=== PATIENT | male | born 1955 | race Caucasian/White ===

== ENCOUNTER 2024-08-08 18:49 | Emergency (ER) | payer OTHER, SELFPAY ==
[2024-08-08 18:54] VITALS: BP 113/71; PULSE 96; RESP 20; TEMP 36.6; O2SAT 96
[2024-08-08] MEDS: HYDROmorphone 2 MG/ML SYR 0.5 MG IVP (21:12)
[2024-08-08] MEDS: Dexamethasone 4 MG/ML VIAL IVP (21:12)
[2024-08-08 21:21] LABS: Abs Immature Grans 0.02 10^3/uL (0.0-0.06); Absolute Basophil Count 0.05 10^3/uL (0.0-0.2); Absolute Eosinophil Count 0.25 10^3/uL (0.0-0.7); Absolute Lymphocyte Count 1.65 10^3/uL (1.2-3.4); Absolute Monocyte Count 0.73 10^3/uL (0.1-0.8); Absolute Neutrophil Count 5.05 10^3/uL (1.2-6.7); Basophils % 0.6 %; Eosinophils % 3.2 %; HCT 39.3 % (40.0-50.0); HGB 13.4 g/dL (13.5-17.5); Immature Grans % 0.3 %; Lymphocytes % 21.3 %; MCH 29.5 pg (27.0-33.0); MCHC 34.1 % (32.0-36.0); MCV 86 fL (80-95); MPV 9.7 fL (8.0-11.0); Monocytes % 9.4 %; Neutrophils % 65.2 %; Platelet Count 423 10^3/uL (130-400); RBC 4.55 10^6/uL (4.36-5.78); RDW 13.4 % (11.8-14.1); RDW-SD 42.1 fL; WBC 7.75 10^3/uL (4.4-10.8)
[2024-08-08 21:36] LABS: ALT 19 U/L (16-63); AST 19 U/L (15-37); Albumin 3.2 g/dL (3.4-5.0); Alkaline Phosphatase 109 U/L (46-116); Anion Gap 6.5 mmol/L (3-11); BUN 19 mg/dL (7-18); Bilirubin, Total 0.5 mg/dL (0.2-1.0); CO2 29.5 mmol/L (21.0-32.0); CREATININE 0.9 mg/dL (0.70-1.30); Calcium 9.4 mg/dL (8.5-10.1); Chloride 98 mmol/L (98-107); Estimated GFR 93.03 (mL/min/1.73m2); Glucose 134 mg/dL (74-106); Potassium 3.5 mmol/L (3.5-5.1); Sodium 134 mmol/L (136-145); Total Protein 7.9 g/dL (6.4-8.2)
[2024-08-08] MEDS: HYDROmorphone 2 MG/ML SYR 1 MG IVP (22:23)
[2024-08-08] MEDS: Normal Saline - Diluent 50 ML VIAL IJ (22:55)
--- NOTE | 2024-08-08 22:55 | DI.CT_ITS ---
Exam(s) CT CHEST PE CTA EXAM: CT CHEST PE CTA CLINICAL HISTORY: hx of melanma/ mets to axillary, left, numb arm,. TECHNIQUE: Imaging Protocol: Axial CT angiography was performed with multi-slice acquisition and mu lti-planar reconstructions as well as axial, coronal and sagittal MIP reconstructions. Computer aided detection (CAD) was utilized. CONTRAST MATERIAL: Intravenous: Omnipaque 350 Contrast volume:90 ml COMPARISON: No exams were available for comparison FINDINGS: There is streak artifact secondary to patient arm positioning. Pulmonary Arteries: No evidence of filling defect to suggest pulmonary emboli. Mediastinum and Isabell: Enlarged left paratracheal lymph node 1.9 cm. Pulmonary parenchyma: No consolidation or dominant measurable mass. Pleura: No effusion or pneumothorax. Scattered calcified pleural plaques. Heart: The heart is mildly dilated. Mild coronary artery calcifications are seen. Aorta: Thoracic aorta non-dilated. No dissection. Upper abdomen: No acute findings. Bones: Prominent endplate osteophytes consistent with DISH. No fracture or visible rib destruction. Tubes, Catheters, and Lines: None Soft tissues: There is a large homogeneous solid mass noted in the right axilla measuring 6.2 x 10.4 x 11.8 cm the lies beneath the pectoralis minor muscle. It abuts the ribs intracostal muscles. Ther e is no definite invasion. There is an additional node located directly superior to the larger mass measuring 3 cm. The right subclavian and axillary arteries are patent. There is some attenuation of the axillary artery by the large axillary mass which is situated directly inferiorly and anteriorly.. The venous structures are not yet opacified and cannot be evaluated. IMPRESSION: No evidence of pulmonary embolism. Large left axillary mass with some compression of the right subclavian artery. No evidence of rib de struction. Enlarged left paratracheal lymph node. No visible pulmonary metastases. The preliminary [facility] report was reviewed. RADIATION DOSE DELIVERED: Total DLP DATA REPOSITORY: All CT scans at this facility are submitted to the National Radiology Data Registry (NRDR) Dose Index Registry (DIR) with the [employer] (ACR). RADIATION OPTIMIZATION: All CT scans at this facility use at least one of these dose optimization te chniques: automated exposure control; mA and/or kV adjustment per patient size (includes targeted exa ms where dose is matched to clinical indication); or iterative reconstruction.
[2024-08-08] MEDS: Omnipaque 350 MG/ML 100 ML BTL 90 ML IJ (22:56)
[2024-08-08] MEDS: MORPHine IR 15 MG TAB PO (23:10)
[2024-08-08] MEDS: Gabapentin 300 MG CAP PO (23:11)
--- NOTE | 2024-08-08 23:37 | DI.[facility]_ITS ---
PROCEDURE INFORMATION: Exam: CTA Chest With Contrast Exam date and time: 08/08/2024 10:43 PM Age: 69 years old Clinical indication: Other: HX of melanoma/mets to axillary, left, numb arm TECHNIQUE: Imaging protocol: Computed tomographic angiography of the chest with contrast. Exam focused on the arteries. 3D rendering (Not supervised by radiologist): MIP and/or 3D reconstructed images were created by the technologist. Contrast material: OMNIPAQUE 350; Contrast volume: 90 ml; Contrast route: INTRAVENOUS (IV); COMPARISON: No relevant prior studies available. FINDINGS: Pulmonary arteries: No pulmonary embolism. Aorta: Contrast in the aorta is low, limiting evaluation for dissection. No aneurysm. Other arteries: There is no occlusion of the right subclavian or axillary arteries. The subclavian and axillary arteries are surrounded by the chest wall mass, over 270 degrees. See industrial relations representative sagittal image 21 series 6. Lungs: No consolidation. No rounded ground-glass opacity. No significant interstitial lung disease. No suspicious pulmonary nodules. Pleural spaces: Unremarkable. No pneumothorax. No pleural effusion. Heart: No cardiomegaly. Trace pericardial effusion. No significant coronary artery calcification. Lymph nodes: A mildly enlarged left paratracheal lymph node measures 1.9 x 1.4 cm, axial image 21 series 4. Bones/joints: No compression fractures. Mild kyphosis. Findings of diffuse idiopathic skeletal hyperostosis (DISH) are noted. Soft tissues: A large mass is present in the right chest wall, involving or displacing the right pectoralis minor muscle. The mass measures 6.2 x 10.4 x 11.8 cm. See axial image 20 series 4 and sagittal image 21 series 6. The mass is homogeneous in attenuation, Hounsfield units 21. The overlying pectoralis major muscle appears normal, with a fat plane between the muscle and the mass. The mass is closely adjacent to the intercostal muscles, however no specific intercostal or rib invasion is observed. IMPRESSION: 1. No pulmonary embolism. 2. No significant pneumonia. 3. Large right chest wall/axillary mass. Dictated and Authenticated by: Tunde Moreno MD. Orderin Lashawn Higgins MD
--- NOTE | 2024-08-08 23:59 | W.ED.GENAD ---
Discharge Plan Disposition Patient Disposition: Home Condition: Stable Discharge Details Clinical Impression: Metastatic melanoma, Axillary mass Primary Care Provider: [facility] ED Provider: Gisela Hardin Home Meds and New Rx's Prescriptions: New morphine 15 mg tablet 15 mg PO BID Qty: 12 0RF gabapentin [Neurontin] 300 mg capsule 300 mg PO TID Qty: 30 0RF Continued oxycodone 10 mg tablet 10 mg PO Q12H Discharge Instructions Instructions: Melanoma Skin Cancer (DC) Additional Instructions: Take the oxycodone 10 twice daily, for pain uncontrolled with OxyContin you may take morphine IR for breakthrough pain You may also take the Neurontin 3 times daily, try not to take any of these medications at the same time Make sure you are having prune juice or a laxative daily Please follow-up with your oncologist and placing a palliative care referral for better pain control Please be reevaluated should you have dramatic change or worsening pain Referrals: [facility] [Primary Care Provider] - 3 days HPI General Date/Time Provider Initiated Documentation: 08/08/24 19:00. HPI Narrative: 69-year-old male with melanoma metastasis to right axillary region, presenting with intractable pain. Persistent pain despite OxyContin prescribed by oncologist two days ago. Neurontin previously tried without relief. Seeking effective pain management. [facility] Alert and oriented but acutely uncomfortable. will monitor due to extensive medication regimen. Swelling in right axillary region. Negative Adson's test, good radial pulse, intact sensation to fingers. Follows with dermatology oncology, had immunotherapy on the 6th. Related Data Home Medications ?Medication ?Instructions ?Recorded ?Confirmed gabapentin 300 mg capsule 300 mg PO TID #30 caps 08/08/24 (Neurontin) morphine 15 mg immediate release 15 mg PO BID #12 tabs 08/08/24 tablet oxycodone 10 mg tablet 10 mg PO Q12H 08/08/24 08/08/24 Previous Rx's ?Medication ?Instructions ?Recorded gabapentin 300 mg capsule 300 mg PO TID #30 caps 08/08/24 (Neurontin) morphine 15 mg immediate release 15 mg PO BID #12 tabs 08/08/24 tablet Allergies Allergy/AdvReac Type Severity Reaction Status Date / Time No Known Allergies Allergy Unverified 08/08/24 19:00 General Stated Complaint: Orthopedic RED: 3 Exam Narrative Exam Narrative: General Appearance: Normal. Vital signs: Within normal limits. HEENT: Within normal limits. Respiratory: Lungs clear to auscultation. No respiratory distress. Cardiovascular: Distal pulses intact. Skin: Warm and dry, no rash. Neurological: Normal. Course Vital Signs Vital signs: Vital Signs Temperature 36.6 C 08/08/24 18:54 Pulse 96 H 08/08/24 18:54 Respiratory Rate 20 08/08/24 18:54 Blood Pressure 113/71 08/08/24 18:54 Pulse Oximetry 96 08/08/24 18:54 Temperature 36.6 C 08/08/24 18:54 Pulse 96 H 08/08/24 18:54 Respiratory Rate 20 08/08/24 18:54 Blood Pressure 113/71 08/08/24 18:54 Blood Pressure Position Sitting 08/08/24 18:54 Pulse Oximetry 96 08/08/24 18:54 Oxygen Delivery Method Room Air 08/08/24 18:54 Oxygen Flow Rate 0 08/08/24 18:54 Pain Level 4 08/08/24 23:10 Lab/Test Results Lab/Test Results: Laboratory Tests Range/Units 08/08/24 21:14 WBC (4.4-10.8) 10^3/uL 7.75 RBC (4.36-5.78) 10^6/uL 4.55 Hgb (13.5-17.5) g/dL 13.4 L Hct (40.0-50.0) % 39.3 L MCV (80-95) fL 86 MCH (27.0-33.0) pg 29.5 MCHC (32.0-36.0) % 34.1 RDW (11.8-14.1) % 13.4 Plt Count (130-400) 10^3/uL 423 H MPV (8.0-11.0) fL 9.7 Immature Gran % % 0.3 Neutrophils % % 65.2 Lymphocytes % % 21.3 Monocytes % % 9.4 Eosinophils % % 3.2 Basophils % % 0.6 Nucleated RBC % (0.0-0.3) % 0.0 Absolute Neutrophils (1.2-6.7) 10^3/uL 5.05 Absolute Lymphocytes (1.2-3.4) 10^3/uL 1.65 Absolute Monocytes (0.1-0.8) 10^3/uL 0.73 Absolute Eosinophils (0.0-0.7) 10^3/uL 0.25 Absolute Basophils (0.0-0.2) 10^3/uL 0.05 Sodium (136-145) mmol/L 134 L Potassium (3.5-5.1) mmol/L 3.5 Chloride (98-107) mmol/L 98 Carbon Dioxide (21.0-32.0) mmol/L 29.5 Anion Gap (3-11) mmol/L 6.5 BUN (7-18) mg/dL 19 H Creatinine (0.70-1.30) mg/dL 0.9 Est GFR (CKD-EPI 2020) (mL/min/1.73m2) 93.03 Glucose (74-106) mg/dL 134 H Calcium (8.5-10.1) mg/dL 9.4 Total Bilirubin (0.2-1.0) mg/dL 0.5 AST (15-37) U/L 19 ALT (16-63) U/L 19 Alkaline Phosphatase (46-116) U/L 109 Total Protein (6.4-8.2) g/dL 7.9 Albumin (3.4-5.0) g/dL 3.2 L Medical Decision Making CBC and chemistry reassuring. CT chest shows no significant acute change compared to previous CT. Initial Assessment: 69-year-old male with recent diagnosis of melanoma with metastasis to the right axillary region, presenting with intractable pain. OxyContin prescribed 2 days ago, not controlling pain. Neurontin tried without relief. Immunotherapy on the 6th. Swelling in right axillary region. Negative Adson's, good radial pulse. Alert and oriented but acutely uncomfortable. Intact sensation to fingers. ED Course: - CT chest ordered for comparison, no significant acute change compared to previous CT. - CBC and chemistry reassuring. - PDMP reviewed, only on OxyContin. - Added Morphine IR 15 mg for breakthrough pain. - Prescribed Neurontin. - Palliative care referral placed. - Referral back to dermatology oncology for patient. - Return precautions reviewed, patient expressed understanding. Final Assessment: Patient with intractable pain due to melanoma metastasis to the right axillary region. Pain not controlled by OxyContin and Neurontin. CT chest shows no significant acute change. CBC and chemistry are reassuring. Morphine IR added for breakthrough pain. Palliative care and dermatology oncology referrals placed. Clinical Impression: - Intractable pain - Melanoma with metastasis to right axillary region Disposition: - Discharge - Follow-Up: Palliative care referral and dermatology oncology referral MDM Components Evaluation: - Number of Differential Diagnoses or Management Options: Intractable pain, melanoma with metastasis to right axillary region - Amount and Complexity of Data Reviewed: CT chest, CBC, chemistry, PDMP - Risk of Complication and Morbidity or Mortality: Low clinical suspicion for PE or more ominous pathology based on clinical assessment Quality:SDOH Health Related Social Needs: No Data to Display PFSH All Active Problems (Updated 08/08/24 @ 23:49 by LENORA Tamez) Axillary mass (Acute) Metastatic melanoma (Acute) Social History Smoking risk assessment performed?: No
[2024-08-09] MEDS: MORPHine IR 15 MG TAB, 4 TABS/BTL PO (00:01)
[2024-08-09 00:13] VITALS: BP 113/71; PULSE 62; RESP 20; O2SAT 96
--- NOTE | 2024-08-09 08:05 | NUR.NOTE ---
Access chart to get information for referral. Nursing Note:
== END 2024-08-09 00:13 | disposition home or self-care (01) ==
PROVIDERS: Emergency Provider Physician Assistant
DX: C43.9 Malignant melanoma of skin, unspecified (principal); R22.31 Localized swelling, mass and lump, right upper limb; M79.621 Pain in right upper arm
CPT/HCPCS: 99284; 99285; 96374; 96375; 96376; 36415; 71275; 80053; 85025; J1100; J1171; J3490

== ENCOUNTER 2024-10-08 09:13 | Inpatient (IN) | payer OTHER, SELFPAY ==
[2024-10-08] VITALS (29 sets, daily range): BP systolic 95–122; BP diastolic 56–75; PULSE 102–116; RESP 11–27; TEMP 34.8–36.8; O2SAT 93–98
--- NOTE | 2024-10-08 09:14 | W.ED.GENAD ---
Discharge Plan Discharge Details Chief Complaint: GenMedical Clinical Impression: Acute deep vein thrombosis (DVT) of right upper extremity Admit Date/Time: 10/08/24 13:03 Admit Provider: Alberto Malone Attending Provider: Alberto Malone Primary Care Provider: Unknown,Unknown ED Provider: Abdoulaye Em General Date/Time Provider Initiated Documentation: 10/08/24 09:14. HPI Narrative: MDM This is an unwell appearing tachycardic and hypotensive 69-year-old male with significant right upper chest mass and history of malignant melanoma with decreased motor function in right hand concerning for the possibility of upper extremity DVT for which patient will undergo ultrasound. Given tachycardia and hypotension we will also obtain CT angiogram of the patient's chest to assess for PE. He does have mild lower extremity edema but appears to have a preserved ejection fraction. Given concern for sepsis we will limit IV fluids to 1 L. No pain or proportion to suggest necrotizing soft tissue infection. Right hand warm well-perfused so no concern for critical limb ischemia. I covered patient with piperacillin and vancomycin following blood cultures and lactate assessment. Patient confirms full code. Equal breath sounds without pneumothorax. Soft nontender abdomen so did not obtain intra-abdominal imaging. No history of thoracic rib to suggest thoracic outlet syndrome. Patient reports chronic decreased mobility in right hand so not suspicious for CVA so do not feel the patient requires CT scan of his head. Will treat his pain with hydromorphone and reassess. 10:20 AM Mild lactic acidosis. ECG showing sinus tachycardia left bundle not meeting Sgarbossa criteria nor modified Gonsalez criteria. Prolonged QTc. Venous gas showing no acidemia nor hypercarbia. CBC with mild normocytic anemia slightly worse compared to prior. Slightly improved thrombocytosis. No leukocytosis. 10:51 AM Lipase within normal limits. Initial reassuring troponin. Comprehensive metabolic panel with no TELMA. Mild hyperglycemia mild anion gap but normal bicarbonate??not consistent with DKA. Normal reassuring magnesium. 11:13 AM Repeat reassuring troponin. Will cancel third troponin. 4:40 PM Patient was found to have an acute upper extremity DVT for which I initiated heparin. He was hemodynamically stable. He is excepted by the hospitalist, Dr. Malone for hospitalization. HPI This is a patient with a history of cancer presenting with right arm pain. The patient reports experiencing pain in the right armpit, described as a gnawing sensation. The pain has been constant and acute over the past few days, and even morphine does not alleviate it. He also notes swelling in his entire arm, which is not a new symptom and is attributed to the cancer wrapping around his vessels. He has not undergone any recent surgeries. He is currently undergoing immunotherapy, having received 4 infusions so far, but he feels it is not effective. He is considering an injection directly into the cancerous area. He reports no fevers, breathing difficulties, nausea, vomiting, or chest pain. He has noticed unintentional weight loss and new swelling in his ankles that started 3 to 4 days ago. He does not experience shortness of breath when lying down. His current medication regimen includes OxyContin, gabapentin, and a small amount of morphine. Exam General: Uncomfortable appearing-appearing in no acute distress speaking in complete sentences. Head: Normocephalic, atraumatic. Eye: Extraocular eye movements intact. No conjunctival injection. No scleral icterus. Ear, nose, mouth, throat: Grossly normal inspection. Normal voice, handling secretions normally. Neck: Trachea midline. Cardiovascular: Well-perfused distal extremities. Rapid regular rate. Bilateral lower extremity 1+ pitting. Respiratory: Nonlabored respiration. Clear lungs bilaterally. Chest wall: Large approximately 7 x 7 cm right chest wall mass that extends laterally into the axilla. Gastrointestinal: Nondistended abdomen. Musculoskeletal: Edematous right arm. Warm well-perfused right hand. Decreased sensation and motor function in the right hand across all nerve distributions. Palpable 2+ right radial pulse. Patient has difficulty lifting his right arm which she reports is chronic. Skin: Normal for age and race, grossly normal temperature and turgor. No acute rash. Neurologic: Alert and appropriate, no apparent acute deficits. Psychiatric: Mood and manner are appropriate. Grooming and personal hygiene are appropriate. Related Data Home Medications ?Medication ?Instructions ?Recorded ?Confirmed gabapentin 300 mg capsule 600 mg (2 x 300 mg) PO TID 08/26/24 09/26/24 (Neurontin) neuropathic pain #180 caps polyethylene glycol 3350 17 4 g PO DAILY #119 grams 08/26/24 09/26/24 gram/dose oral powder (Miralax) oxycodone 30 mg tablet,crush 30 mg PO Q12H #60 tabs 09/26/24 09/26/24 resistant,extended release 12 hr (OxyContin) morphine 30 mg immediate release 30 mg PO Q4H PRN PRN pain #120 tabs 10/02/24 tablet oxycodone 15 mg tablet,crush 30 mg (2 x 15 mg) PO BID #60 tabs 10/02/24 resistant,extended release 12 hr Previous Rx's ?Medication ?Instructions ?Recorded gabapentin 300 mg capsule 600 mg (2 x 300 mg) PO TID 08/26/24 (Neurontin) neuropathic pain #180 caps polyethylene glycol 3350 17 4 g PO DAILY #119 grams 08/26/24 gram/dose oral powder (Miralax) oxycodone 30 mg tablet,crush 30 mg PO Q12H #60 tabs 09/26/24 resistant,extended release 12 hr (OxyContin) morphine 30 mg immediate release 30 mg PO Q4H PRN PRN pain #120 tabs 10/02/24 tablet oxycodone 15 mg tablet,crush 30 mg (2 x 15 mg) PO BID #60 tabs 10/02/24 resistant,extended release 12 hr Allergies Allergy/AdvReac Type Severity Reaction Status Date / Time No Known Allergies Allergy Unverified 10/08/24 09:23 General RED: 3 PFSH All Active Problems (Updated 10/08/24 @ 12:33 by Abdoulaye Em MD) Acute deep vein thrombosis (DVT) of right upper extremity (Acute) Lung nodule (Acute) Malignant melanoma (Acute) Cancer related pain (Acute) Medical History (Updated 10/08/24 @ 12:33 by Abdoulaye mE MD) Immunotherapy Social History Smoking/Tobacco Use Status: Never Smoking risk assessment performed?: Yes Alcohol Intake: never Substance use type: does not use Housing: house Do you feel safe at home: Yes Do you feel safe in your relationship?: Yes POCUS Exam (ED) Limited Cardiac Exam DATE OF EXAM: 10/08/24 TIME OF EXAM: 10:27 PROVIDER THAT PERFORMED THE STUDY: Abdoulaye Em IS THIS A REPEAT EXAM DURING THIS ENCOUNTER: no REASON FOR EXAM: Chest pain VISUALIZED STRUCTURES: Four Chambers, Left ventricle and LVOT VIEW OBTAINED: Apical 4-Chamber, Parasternal long-axis and Subxiphoid PERTINENT FINDINGS/IMPRESSION: No pericardial effusion and No RV dilation DIFFERENTIAL DIAGNOSES: Aortic outflow track less than 4 cm, good squeeze, RV less than LV, no significant pericardial effusion. Trace bilateral B-lines. Exam complete
--- NOTE | 2024-10-08 09:15 | DI.CT_ITS ---
Exam(s) CT CHEST PE CTA EXAM: CT CHEST PE CTA CLINICAL HISTORY: Right axillary pain. TECHNIQUE: Imaging Protocol: Axial CT angiography was performed with multi- slice acquisition and multi-planar and/or 3D reconstructions. Lung Computer Aided Detection (CAD) was utilized. CONTRAST MATERIAL: Intravenous: Omnipaque 350 contrast volume:80 mL COMPARISON: CT CT CHEST PE CTA from 08/08/2024 FINDINGS: Tracheobronchial tree: Patent where visualized. No bronchiectasis. Pulmonary parenchyma: No consolidation or dominant measurable mass. No architectural distortion. Pulmonary Arteries: No evidence of filling defect to suggest pulmonary emboli. Mediastinum and Isabell: No dominant adenopathy or fluid collection. The esophagus is unremarkable. Visualized thyroid gland: Unremarkable. Pleura: No effusion or pneumothorax. Heart: The heart is not dilated. Coronary artery calcifications are present. No pericardial effusion. Aorta: The ascending thoracic aorta measures 4.1 x 4 cm. Atherosclerotic calcification is present. No evidence of dissection. Upper abdomen: Unremarkable. Soft tissues: There is again seen a right axillary soft tissue mass measuring at least 11 transverse by 14 AP by 13 craniocaudad cm. The subclavian and right axillary artery are visualized and are patent. Bones: Within normal limits for the patient's age. IMPRESSION: 1. There is no evidence of a pulmonary embolism or thoracic aortic dissection. 2. There is again seen a large right axillary soft tissue mass. Neoplasm versus metastatic disease. 3. No acute pulmonary process. 4. The ascending thoracic aorta measures 4.1 x 4 cm. RADIATION DOSE DELIVERED: 188.43mGy.cm Total DLP DATA REPOSITORY: All CT scans at this facility are submitted to the National Radiology Data Registry (NRDR) Dose Index Registry (DIR) with the [employer] ([employer]). RADIATION OPTIMIZATION: All CT scans at this facility use at least one of these dose optimization techniques: automated exposure control; mA and/or kV adjustment per patient size (includes targeted exams where dose is matched to clinical indication); or iterative reconstruction.
--- NOTE | 2024-10-08 09:15 | RT.EKG_ITS ---
APPROVED REPORT Exam: Resting ECG Reason for Exam: Right chest pain Patient Location: E HR:108 bpm ECG Measurements Heart Rate 108 AXIS WA 156 P 44 QRSd 157 QRS -9 QT 393 T 93 QTc 527 Conclusion Sinus tachycardia...rate> 99 Left bundle branch block...QRSd>120, broad/notched R ST elevation secondary to IVCD...Multiple VCG criteria No Occlusion ND
[2024-10-08] MEDS: HYDROmorphone 2 MG/ML SYR 0.5 MG IVP ×3 (09:46→23:51)
[2024-10-08] MEDS: Normal Saline 1,000 ML 1000 ML IV (09:47)
[2024-10-08 09:53] LABS: BE (Venous) 7 mmol/L (-2-3); HCO3 (Venous) 29 mmol/L (23-28); O2 Sat (Venous) 51 %; TCO2 (Venous) 27 mmol/L (24-29); pCO2 (Venous) 35 mmHg (41-51); pO2 (Venous) 25 mmHg
[2024-10-08 09:56] LABS: Abs Immature Grans 0.04 10^3/uL (0.0-0.06); HCT 37.9 % (40.0-50.0); HGB 12.1 g/dL (13.5-17.5); Immature Grans % 0.5 %; MCH 26.6 pg (27.0-33.0); MCHC 31.9 % (32.0-36.0); MCV 83 fL (80-95); MPV 8.8 fL (8.0-11.0); Platelet Count 411 10^3/uL (130-400); RBC 4.55 10^6/uL (4.36-5.78); RDW 13.2 % (11.8-14.1); RDW-SD 39.8 fL; WBC 8.72 10^3/uL (4.4-10.8)
--- NOTE | 2024-10-08 10:15 | DI.US_ITS ---
Exam(s) US UPPER EXTREMITY VENOUS RT EXAM: US UPPER EXTREMITY VENOUS RT CLINICAL HISTORY: Right arm swelling pain. TECHNIQUE: Ultrasound examination of the right upper extremity venous system(s) is performed using grayscale, color-flow, and spectral Doppler analysis. COMPARISON: No exams were available for comparison FINDINGS: Right Deep Veins:The visualized internal jugular and subclavian veins are patent. The axillary and brachial veins are patent and display normal color flow, augmentation and compressibility. Superficial Veins:There is hypoechoic thrombus seen in the right median cubital vein extending into the cephalic vein. It measures 5.8 cm in length. The basilic vein is patent. Soft tissues: Unremarkable. IMPRESSION: Thrombus is visualized in the right median cubital vein extending into the cephalic vein and measures 5.8 cm in length. DATA REPOSITORY:
[2024-10-08] MEDS: PIPERACILLIN/TAZO 3.375 GM in Normal Saline 50 ML IVPB ×2 (10:17→19:59)
[2024-10-08] MEDS: VANCOMYCIN/WATER (PEG) 1.75 GM/350 ML BAG IV (10:17)
[2024-10-08 10:34] LABS: ALT 15 U/L (16-63); AST 19 U/L (15-37); Albumin 1.9 g/dL (3.4-5.0); Alkaline Phosphatase 109 U/L (46-116); Anion Gap 11.5 mmol/L (3-11); BUN 15 mg/dL (7-18); Bilirubin, Total 0.5 mg/dL (0.2-1.0); CO2 27.5 mmol/L (21.0-32.0); Calcium 9.2 mg/dL (8.5-10.1); Chloride 99 mmol/L (98-107); Estimated GFR 96.40 (mL/min/1.73m2); Glucose 110 mg/dL (74-106); Lipase 17 U/L (<78); Magnesium 1.8 mg/dL (1.8-2.4); Potassium 3.6 mmol/L (3.5-5.1); Sodium 138 mmol/L (136-145); Total Protein 7.4 g/dL (6.4-8.2); Troponin I 10 ng/L (<or=76)
[2024-10-08] MEDS: Normal Saline - Diluent 50 ML VIAL IJ (10:56)
[2024-10-08] MEDS: Omnipaque 350 MG/ML 500 ML BTL-Imaging package 80 ML IJ (10:57)
[2024-10-08 11:06] LABS: Troponin I 8 ng/L (<or=76)
[2024-10-08] MEDS: HYDROmorphone 2 MG/ML SYR 1 MG IVP ×2 (11:15→15:42)
[2024-10-08 11:41] LABS: COVID-19 PCR Negative (Negative); RSV PCR Negative (Negative)
[2024-10-08 12:27] LABS: Glucose Negative (Negative)
[2024-10-08] MEDS: oxyCODONE-CR 10 MG TABCR 30 MG PO ×2 (12:48→13:10)
[2024-10-08 13:04] LABS: PTT Activated 26.3 sec (20.6-30.2)
--- NOTE | 2024-10-08 13:04 | W.PM.HP.N ---
Date of service: 10/08/24 Time of Service: 13:04 Assessment and Plan Assessment and plan (1) Severe sepsis: Status: Acute Assessment and plan: Tachycardia in the low 100s and respiratory rate 24-27 without WBC?source unknown Lactic acid 2.21 L fluid given in the ED repeat lactic pending Will suppress due to neoplasm stage IIIb and ongoing immunotherapy Will continue treating with vancomycin and Zosyn LR at 80 cc an hour Tick and lyme panel ordered in the ED pending Labs in a.m. (2) Acute deep vein thrombosis (DVT) of right upper extremity: Status: Acute Assessment and plan: As per right upper extremity venous: Thrombus is visualized in the right median cubital vein extending into the cephalic vein and measures 5.8 cm in length Both superficial vein of the upper arm, PE Heparin drip will be transitioned to eliquis 10 mg PO BID for 14 doses then 5 mg PO BID for 3- month total duration of therapy Telemetry Scheduled acetaminophen changed to as needed (3) Malignant melanoma: Status: Acute Assessment and plan: Continue outpatient management- most likely to contribute to hypercoagulabilty state (4) Lung nodule: Status: Acute Assessment and plan: No acute respiratory distress Outpatient mangement at discharge (5) Cancer related pain: Status: Acute Assessment and plan: OPT medicine regimen - on opioids at home Oral PRN hydromorphone for acute pain in the setting of thrombophlebitis If pain is not not resolved then administer as needed IV push hydromorphone (6) Immunotherapy: Assessment and plan: Continue outpatient f/u at discharge Discussed with Dr. Malone (7) Elevated lactic acid level: Status: Acute Assessment and plan: Lactic 2.8 in the ED , IV crystalloid one liter as well as vancomycin and piperacillin tazobactam Repeat lactic ordered Will continue antibiotic regimen pending blood cultures History of Present Illness History of Present Illness Chief Complaint: right arm pain Narrative: This is a 69 years old male patient with a past medical history of melanoma stage IIIb with ongoing immunotherapy at [facility] who presented to the ED for acute right arm pain not resolved on his home dose opioids. Workup in the ED was positive for lactic acid at 2.2 without leukocytosis and mild tachycardia with an EKG that was negative for acute coronary occlusion and negative troponins. Imaging was positive for findings of right upper arm median cubital thrombosis extending into the cephalic vein without findings of PE. Ongoing solid mass seen to the right axilla again. The patient denied headache, dizziness, falls, chest pain, nausea vomiting, abdominal pain, diarrhea constipation or dysuria. Right arm pain resolved with hydromorphone IV in the ED. In the patient in the ED the patient received vancomycin and piperacillin/tazobactam and 1 L of IV fluid , heparin drip and was admitted to the medical surgical floor by the hospitalist service for right upper extremity thrombophlebitis, elevated lactic acid in the setting of known metastatic disease without neutropenia nor fever. Full CODE STATUS confirmed Review of Systems All systems reviewed & are unremarkable except as noted in HPI and below PFSH All Active Problems (Updated 10/08/24 @ 19:18 by Jolene Ballard APRN) Severe sepsis (Acute) Sepsis (Acute) Elevated lactic acid level (Acute) Acute deep vein thrombosis (DVT) of right upper extremity (Acute) Lung nodule (Acute) Malignant melanoma (Acute) Cancer related pain (Acute) Medical History (Updated 10/08/24 @ 19:18 by Jolene Ballard APRN) Immunotherapy Social History Smoking/Tobacco Use Status: Never Smoking risk assessment performed?: Yes Alcohol Intake: never Substance use type: does not use Housing: house Do you feel safe at home: Yes Do you feel safe in your relationship?: Yes Meds Allergies and Home Medications Allergies Allergy/AdvReac Type Severity Reaction Status Date / Time No Known Allergies Allergy Unverified 10/08/24 09:23 Home Medications ?Medication ?Instructions ?Recorded ?Confirmed ?Type gabapentin 300 mg capsule 600 mg (2 x 300 mg) PO TID 08/26/24 09/26/24 Rx (Neurontin) neuropathic pain #180 caps polyethylene glycol 3350 17 4 g PO DAILY #119 grams 08/26/24 09/26/24 Rx gram/dose oral powder (Miralax) morphine 30 mg immediate release 30 mg PO Q4H PRN PRN pain #120 tabs 10/02/24 Rx tablet oxycodone 15 mg tablet,crush 30 mg (2 x 15 mg) PO BID #60 tabs 10/02/24 Rx resistant,extended release 12 hr Exam Narrative Exam Narrative: 69 years old male patient in no acute distress when seen pain control with hydromorphone IV in the ED, ordered x 3, no acute focal neurological deficit ongoing right upper extremity weakness, clear lungs, S1-S2 no murmur positive pulses to all 4 extremities abdomen is nondistended soft nontender bowel sounds are present, bilateral lower extremity swelling left more than right Results Labs 10/09/24 05:40 10/09/24 05:40 Labs: Laboratory Results - last 24 hr 10/08/24 10/08/24 10/08/24 09:40 10:40 10:48 WBC 8.72 RBC 4.55 Hgb 12.1 L Hct 37.9 L MCV 83 MCH 26.6 L MCHC 31.9 L RDW 13.2 Plt Count 411 H MPV 8.8 Immature Gran % 0.5 Neutrophils % 83.9 Lymphocytes % 9.5 Monocytes % 4.8 Eosinophils % 0.8 Basophils % 0.5 Nucleated RBC % 0.0 Absolute Neutrophils 7.32 H Absolute Lymphocytes 0.83 L Absolute Monocytes 0.42 Absolute Eosinophils 0.07 Absolute Basophils 0.04 VBG pH 7.54 H VBG pCO2 35 L VBG pO2 25 VBG HCO3 29 H VBG Total CO2 27 VBG O2 Saturation 51 VBG Base Excess 7 H VBG Lactate 2.2 H* Sodium 138 Potassium 3.6 Chloride 99 Carbon Dioxide 27.5 Anion Gap 11.5 H BUN 15 Creatinine 0.8 Est GFR (CKD-EPI 2020) 96.40 Glucose 110 H Calcium 9.2 Magnesium 1.8 Total Bilirubin 0.5 AST 19 ALT 15 L Alkaline Phosphatase 109 Troponin I 10 8 Total Protein 7.4 Albumin 1.9 L Lipase 17 Urine Color Urine Clarity Urine pH Ur Specific [place] Urine Protein Urine Ketones Urine Blood Urine Nitrite Urine Bilirubin Urine Urobilinogen Ur Leukocyte Esterase Urine Glucose COVID-19 Source Nasopharynx SARS-CoV-2 (PCR) Negative Influenza Type A (PCR) Negative Influenza Type B (PCR) Negative RSV (PCR) Negative ABO/Rh O Positive Antibody Screen NEGATIVE 10/08/24 10/08/24 12:20 12:27 WBC RBC Hgb Hct MCV MCH MCHC RDW Plt Count MPV Immature Gran % Neutrophils % Lymphocytes % Monocytes % Eosinophils % Basophils % Nucleated RBC % Absolute Neutrophils Absolute Lymphocytes Absolute Monocytes Absolute Eosinophils Absolute Basophils VBG pH VBG pCO2 VBG pO2 VBG HCO3 VBG Total CO2 VBG O2 Saturation VBG Base Excess VBG Lactate Sodium Potassium Chloride Carbon Dioxide Anion Gap BUN Creatinine Est GFR (CKD-EPI 2020) Glucose Calcium Magnesium Total Bilirubin AST ALT Alkaline Phosphatase Troponin I Cancelled Total Protein Albumin Lipase Urine Color Yellow Urine Clarity Clear Urine pH 6.5 Ur Specific [place] <= 1.005 Urine Protein Negative Urine Ketones Negative Urine Blood Negative Urine Nitrite Negative Urine Bilirubin Negative Urine Urobilinogen 0.2 Ur Leukocyte Esterase Negative Urine Glucose Negative COVID-19 Source SARS-CoV-2 (PCR) Influenza Type A (PCR) Influenza Type B (PCR) RSV (PCR) ABO/Rh Antibody Screen Last Vital Signs Temp 34.8 C L 10/08/24 09:53 Pulse 108 H 10/08/24 11:14 Resp 18 10/08/24 11:14 BP 121/59 L 10/08/24 11:14 Pulse Ox 95 10/08/24 11:14 Time Spent Time spent with Patient: >75 minutes Time was spent: preparing to see the patient(eg.review tests), obtaining and/or reviewing separately otained hiistory, ordering medications,tests, procedures, referring, communicating with other health care aid, indepentently interpreting results, counseling the patient and care coordination
[2024-10-08] MEDS: Heparin in 0.45% NaCl 25,000 UNIT/250 ML BAG 15.5 UNIT IVINF (13:10)
[2024-10-08] MEDS: Apixaban 5 MG TAB 10 MG PO ×2 (18:43→19:59)
[2024-10-08] MEDS: HYDROmorphone 2 MG TAB PO (18:48)
[2024-10-08 19:32] LABS: PTT Activated 46.2 sec (20.6-30.2)
[2024-10-08] MEDS: Acetaminophen 500 MG TAB 1000 MG PO (22:29)
[2024-10-08] MEDS: VANCOMYCIN 1,000 MG in Normal Saline 250 ML 166.6666 MG IVPB (22:30)
[2024-10-08] MEDS: Water,Injection,Sterile 10 ML VIAL (22:31)
[2024-10-09] MEDS: PIPERACILLIN/TAZO 3.375 GM in Normal Saline 50 ML IVPB ×2 (01:47→08:37)
[2024-10-09 03:24] VITALS: BP 115/68; PULSE 92; RESP 14; TEMP 36.1; O2SAT 94
[2024-10-09] MEDS: HYDROmorphone 2 MG TAB PO ×2 (03:36→11:57)
[2024-10-09] MEDS: Normal Saline Flush 10 ML SYR IVP ×3 (04:17→11:01)
[2024-10-09] MEDS: Lactated Ringers 1,000 ML 80 ML IV (04:17)
[2024-10-09 04:35] VITALS: BP 119/73; PULSE 100; RESP 42; TEMP 36.4; O2SAT 96
[2024-10-09] MEDS: HYDROmorphone 2 MG/ML SYR 0.5 MG IVP (04:41)
[2024-10-09 05:30] VITALS: RESP 20; O2SAT 95
[2024-10-09 06:05] LABS: Abs Immature Grans 0.04 10^3/uL (0.0-0.06); HCT 31.3 % (40.0-50.0); HGB 10.2 g/dL (13.5-17.5); Immature Grans % 0.4 %; MCH 27.3 pg (27.0-33.0); MCHC 32.6 % (32.0-36.0); MCV 84 fL (80-95); MPV 8.8 fL (8.0-11.0); Platelet Count 320 10^3/uL (130-400); RBC 3.74 10^6/uL (4.36-5.78); RDW 13.2 % (11.8-14.1); RDW-SD 40.7 fL; WBC 9.30 10^3/uL (4.4-10.8)
[2024-10-09 06:14] LABS: PTT Activated 29.6 sec (20.6-30.2)
[2024-10-09 06:16] LABS: Anion Gap 7.3 mmol/L (3-11); BUN 12 mg/dL (7-18); CO2 28.7 mmol/L (21.0-32.0); Calcium 8.1 mg/dL (8.5-10.1); Chloride 103 mmol/L (98-107); Estimated GFR 100.37 (mL/min/1.73m2); Glucose 102 mg/dL (74-106); Sodium 139 mmol/L (136-145)
[2024-10-09 06:33] LABS: Potassium 2.9 mmol/L (3.5-5.1)
[2024-10-09 07:41] VITALS: BP 105/53; PULSE 99; RESP 17; TEMP 36.4; O2SAT 97
--- NOTE | 2024-10-09 08:35 | PDOC.CMIN ---
Date of service: 10/09/24 Time of Service: 08:35 Care Management Initial Assmt Initial Assessment Reason for Hospitalization: severe sepsis Functional Status/Living Situation Patient Presentation: Ernst was sitting up in a wheelchair visiting with his when CM met with him. He was admitted yesterday with a DVT and sepsis. He stated that he is feeling much better and may be able to discharge later today. Ernst lives in a single family home in [place] with his Emely, her son and their nephew. Ernst has a son who lives in [place], [place] and a daughter in [place]. Ernst is retired but formerly worked for the [employer]. He is independent at baseline and does not receive any community services. Ernst [facility] but does not believe he is service connected. Town of Residence: [place] Resides with: Spouse Significant Other/Family: Local (most family is local, daughter in [place]) Natural Supports: family Employment Status: Retired Instrumental Activities of Daily Living (ADLs): Independent Medications Medication Management: No Issues/Barriers identified Advance Directives Advance Directives: Do you have an Advance Directive: N 08/08/24, 22:[address] [facility]: N 08/08/24, 19:50 Date Asked 10/08/24 10/08/24, 09:29 AD Date Reviewed COLST On File at [facility] No 08/08/24, 19:50 COLST Date Scanned Code Status Resuscitation Status Full Code Portal Pt does not currently have a portal and education provided: Yes Insurance Coverage/Financial Issues Insurance: [facility] Care Team Visit Care Team Role Provider Type Jolene Ballard APRN MD [facility] STAFF PHYSICIAN Unknown Unknown Primary Care Provider STAFF PHYSICIAN Abdoulaye Em MD Emergency Provider [facility] STAFF PHYSICIAN Alberto Malone MD Admit Provider [facility] STAFF PHYSICIAN Attending Provider Discharge Potential Discharge Needs: PCP F/U Appt Anticipated Barriers to Discharge: None Identified Patient/Family Education Needs: Review discharge instructions, discuss Ask Me Three Transportation: Private vehicle Plan: Anticipate Ernst will be discharged home with no new services when medically cleared. He will follow up with his community providers and plan of care and transport with family. CM will folow. Social Determinants of Health Screening Social Determinants of health last assessed in clinic: 10/09/24 Will the Patient Participate in the Screening?: Yes Do you worry about having a steady place to live?: no Problems where you live: no known problems In the past 12 months, have you had to go without electric, gas, oil or water in your home?: no 1. Within the past 12 months, we worried whether our food would run out before we got money to buy more.: Never true 2. Within the past 12 months, the food we bought just didn't last and we didn't have money to get more.: Never true Has lack of transportation kept you from medical appointments or from doing things needed for daily living?: no Has anyone in your life made you feel unsafe or unsupported?: no How hard is it for you to pay for the very basics like food, housing, medical care, and heating? Would you say it is:: Not hard at all Do you want help finding or keeping work or a job?: I do not need or want help If for any reason you need help with day-to-day activities such as bathing, preparing meals, shopping, managing finances, etc., do you get the help you need?: I don?t need any help How often do you feel lonely or isolated from those around you?: Never Do you speak a language other than Jamaican at home?: No Does the patient want assistance with any of the above?: No PFSH All Active Problems (Updated 10/08/24 @ 19:18 by Jolene Ballard APRN) Severe sepsis (Acute) Sepsis (Acute) Elevated lactic acid level (Acute) Acute deep vein thrombosis (DVT) of right upper extremity (Acute) Lung nodule (Acute) Malignant melanoma (Acute) Cancer related pain (Acute) Medical History (Updated 10/08/24 @ 19:18 by Jolene Ballard APRN) Immunotherapy Social History Smoking/Tobacco Use Status: Never Smoking risk assessment performed?: Yes Alcohol Intake: never Substance use type: does not use Housing: house Do you feel safe at home: Yes Do you feel safe in your relationship?: Yes
[2024-10-09] MEDS: Apixaban 5 MG TAB 10 MG PO (08:36)
[2024-10-09 10:18] LABS: Lyme Ab w Rflx to Lyme Confirm Negative (Negative)
--- NOTE | 2024-10-09 10:44 | PGE_ITS ---
Date of Service Date of service: 10/09/24 Time of Service: 10:44 Objective Last Vital Signs Temp 36.4 C L 10/09/24 07:41 Pulse 99 H 10/09/24 07:41 Resp 17 10/09/24 07:41 BP 105/53 L 10/09/24 07:41 Pulse Ox 97 10/09/24 07:41 Laboratory Results - last 24 hr 10/08/24 10/08/24 10/08/24 09:40 10:40 10:48 WBC RBC Hgb Hct MCV MCH MCHC RDW Plt Count MPV Immature Gran % Neutrophils % Lymphocytes % Monocytes % Eosinophils % Basophils % Nucleated RBC % Absolute Neutrophils Absolute Lymphocytes Absolute Monocytes Absolute Eosinophils Absolute Basophils APTT 26.3 VBG Lactate Sodium 138 Potassium 3.6 Chloride 99 Carbon Dioxide 27.5 Anion Gap 11.5 H BUN 15 Creatinine 0.8 Est GFR (CKD-EPI 2020) 96.40 Glucose 110 H Calcium 9.2 Magnesium 1.8 Total Bilirubin 0.5 AST 19 ALT 15 L Alkaline Phosphatase 109 Troponin I 10 8 Total Protein 7.4 Albumin 1.9 L Lipase 17 Urine Color Urine Clarity Urine pH Ur Specific [place] Urine Protein Urine Ketones Urine Blood Urine Nitrite Urine Bilirubin Urine Urobilinogen Ur Leukocyte Esterase Urine Glucose COVID-19 Source Nasopharynx SARS-CoV-2 (PCR) Negative Influenza Type A (PCR) Negative Influenza Type B (PCR) Negative RSV (PCR) Negative ABO/Rh O Positive Antibody Screen NEGATIVE 10/08/24 10/08/24 10/08/24 12:20 12:27 19:10 WBC RBC Hgb Hct MCV MCH MCHC RDW Plt Count MPV Immature Gran % Neutrophils % Lymphocytes % Monocytes % Eosinophils % Basophils % Nucleated RBC % Absolute Neutrophils Absolute Lymphocytes Absolute Monocytes Absolute Eosinophils Absolute Basophils APTT 46.2 H VBG Lactate 0.8 Sodium Potassium Chloride Carbon Dioxide Anion Gap BUN Creatinine Est GFR (CKD-EPI 2020) Glucose Calcium Magnesium Total Bilirubin AST ALT Alkaline Phosphatase Troponin I Cancelled Total Protein Albumin Lipase Urine Color Yellow Urine Clarity Clear Urine pH 6.5 Ur Specific [place] <= 1.005 Urine Protein Negative Urine Ketones Negative Urine Blood Negative Urine Nitrite Negative Urine Bilirubin Negative Urine Urobilinogen 0.2 Ur Leukocyte Esterase Negative Urine Glucose Negative COVID-19 Source SARS-CoV-2 (PCR) Influenza Type A (PCR) Influenza Type B (PCR) RSV (PCR) ABO/Rh Antibody Screen 07/24/25 05:40 WBC 9.30 RBC 3.74 L Hgb 10.2 L Hct 31.3 L MCV 84 MCH 27.3 MCHC 32.6 RDW 13.2 Plt Count 320 MPV 8.8 Immature Gran % 0.4 Neutrophils % 80.7 Lymphocytes % 11.4 Monocytes % 5.4 Eosinophils % 1.8 Basophils % 0.3 Nucleated RBC % 0.0 Absolute Neutrophils 7.50 H Absolute Lymphocytes 1.06 L Absolute Monocytes 0.50 Absolute Eosinophils 0.17 Absolute Basophils 0.03 APTT 29.6 VBG Lactate Sodium 139 Potassium 2.9 L* Chloride 103 Carbon Dioxide 28.7 Anion Gap 7.3 BUN 12 Creatinine 0.7 Est GFR (CKD-EPI 2020) 100.37 Glucose 102 Calcium 8.1 L Magnesium Total Bilirubin AST ALT Alkaline Phosphatase Troponin I Total Protein Albumin Lipase Urine Color Urine Clarity Urine pH Ur Specific [place] Urine Protein Urine Ketones Urine Blood Urine Nitrite Urine Bilirubin Urine Urobilinogen Ur Leukocyte Esterase Urine Glucose COVID-19 Source SARS-CoV-2 (PCR) Influenza Type A (PCR) Influenza Type B (PCR) RSV (PCR) ABO/Rh Antibody Screen
[2024-10-09] MEDS: Potassium Chloride 20 MEQ TABCR 40 MEQ PO ×2 (11:00→15:59)
[2024-10-09] MEDS: POTASSIUM CHLORIDE 20 MEQ/100 ML BAG 50 MEQ IV_INF (11:01)
[2024-10-09] MEDS: VANCOMYCIN/WATER (PEG) 1 GM/200 ML BAG IVPB (11:01)
[2024-10-09 11:05] LABS: Magnesium 1.7 mg/dL (1.8-2.4)
--- NOTE | 2024-10-09 11:06 | PHA.REVIEW2 ---
Pharmacy Admission Review Admission Clinical Review Admission Pharmacy Review: Severe sepsis (Acute) Elevated lactic acid level (Acute) Acute deep vein thrombosis (DVT) of right upper extremity (Acute) Lung nodule (Acute) Malignant melanoma (Acute) Cancer related pain (Acute) No Known Allergies Allergy (Unverified 10/08/24 09:23) Resuscitation Status Full Code Height 6 ft 1 in Weight 85.275 kg Pharmacy Admission Review Renal Dosing Renal Dosing: BUN 12 mg/dL (7-18) 10/09/24 05:40 Creatinine 0.7 mg/dL (0.70-1.30) 10/09/24 05:40 Medications needing adjustments: Reviewed (CrCl 85.28 mL/min) List of meds needing interventions: Current medications are okay Anticoagulation Anticoagulation: Hgb 10.2 g/dL (13.5-17.5) L 10/09/24 05:40 Hct 31.3 % (40.0-50.0) L 10/09/24 05:40 Plt Count 320 10^3/uL (130-400) 10/09/24 05:40 Creatinine 0.7 mg/dL (0.70-1.30) 10/09/24 05:40 Therapeutic Anticoagulation: Reviewed (DVT - started on heparin infusion then transitioned to Eliquis) Medications: Apixaban (10mg PO BID) Opiate Usage Evaluate Pain Scale/Pains Meds: Reviewed (hydromorphone 2mg PO q4h PRN - 4mg/24hrs, hydromorphone 0.5mg IVP q6h PRN - 2mg/24hrs) Scheduled Bowel Reg ordered if on Opiates?: No (PRN Miralax) Relevant Labs Relevant Labs: Sodium 139 mmol/L (136-145) 10/09/24 05:40 Potassium 2.9 mmol/L (3.5-5.1) L* 10/09/24 05:40 Chloride 103 mmol/L (98-107) 10/09/24 05:40 Magnesium 1.7 mg/dL (1.8-2.4) L 10/09/24 05:40 Electrolytes, C-Reactive P, ESR: Reviewed (K 2.9 - receiving IV potassium) Cardiac Review Cardiac Review: Troponin I Cancelled 10/08/24 12:27 BP, HR, EF%: Reviewed (BP 105/53 and HR 99) QTc Review QTc: Reviewed (527 from 10/08/24) List meds needing interventions: Current medications are okay IV to PO Switch IV Medications: Reviewed (vancomycin, Zosyn and hydromorphone) Home Meds Home Med List reviewed: Intervened Relevent Home Meds Not ordered & why?: gabapentin, morphine (PRN) and Oxycontin Takes Oxycontin 30mg BID and morphine IR 30mg q4h PRN. Provider asked if current hydromorphone orders are covering his home dose of opioids. Oxycontin is equivalent to 4.5mg/24hrs of IV hydromorphone or 11mg/24hrs of PO hydromorphone. Hard to take into account the PRN morphine as I do not know patients average 24 hour dose. Asked provider about gabapentin, provider said they will look into it. Asked nurse to confirm home dose as home med list says 600mg TID but most recently filled gabapentin 600mg tablets 90 count for 90 day supply. Waiting to hear back Current Meds Current Medication Order Review: Intervened Comments: Added IV access order Pharmacy Antibiotic Review Relevant Labs: WBC 9.30 10^3/uL (4.4-10.8) 10/09/24 05:40 Temperature 36.4 C Temperature 36.4 C Temperature 36.1 C Temperature 36.4 C Pharmacy Antibiotic Activity: C/S review and Reviewed, no change Comments: Patient is on vancomycin and Zosyn, day 1, for severe sepsis of unknown source. Blood cultures are pending. Current vancomycin dose is 1g q12h with predicted AUC of 442. Level from this AM at 0540 is still pending, will adjust dose as needed once level comes back.
[2024-10-09 11:36] LABS: LDH 248 U/L (85-227)
[2024-10-09 11:45] VITALS: BP 126/69; PULSE 102; RESP 17; TEMP 36.2; O2SAT 95
[2024-10-09] MEDS: Acetaminophen 500 MG TAB 1000 MG PO (11:58)
--- NOTE | 2024-10-09 12:35 | DI.US_ITS ---
APPROVED REPORT EXAM: Comprehensive 2D, Doppler, and color-flow Echocardiogram Patient Location: In-Patient Room/Bed: [address] [employer]: Morena Jo RDCS (AE) Indications: Lower extremity edema, Tacycardia Other Information Study Quality: Fair. Technically limited study due to body habitus, inability to position patient exam done supine bedside . Conclusion Technically difficult study. Normal left ventricular wall thickness and chamber size. Ejection fraction is 45%. Septal motion is consistent with a conduction delay. There is otherwise global mild hypokinesis Right ventricle is not well-visualized but appears grossly normal in size Both atria are normal in size No hemodynamically significant valvular disease is identified Wall motion Left Ventricle Technically limited parasternal imaging. Low imaging window. Left ventricular systolic function is mildly decreased. Global hypokinesis, septal motion consistent with IVCD LVEF is 45%. Right Ventricle Right ventricle is not well visualized. Right ventricular systolic function could not be assessed. Atria The left atrium size is normal. The right atrium size is normal. Aortic Valve The Aortic valve is sclerotic. Number of aortic valve leaflets could not be assessed. There is no aortic valvular stenosis. No aortic regurgitation is present. Mitral Valve Mild mitral annular calcification. No evidence of mitral valve stenosis. Trace mitral regurgitation. Tricuspid Valve The tricuspid valve is normal in structure. There is no tricuspid valve stenosis. Trace tricuspid regurgitation. Pulmonic Valve Pulmonic valve is not well visualized. Great Vessels The aortic root is normal in size. Ascending aorta is not well visualized. Aortic arch is not well visualized. The IVC was not visualized. Technically limited subcostal imaging. Pericardium Technically limited subcostal imaging. 2D Dimensions Ao Root d 3.41 cm M: 3.1 - 3.7 Auto EF LV EDV A4C 219.0 mL LV EDV A2C 202.7 mL LV EDV BP 211.1 mL LV ESV A4C 122.2 mL LV ESV A2C 116.3 mL LV ESV BP 119.3 mL LVEF(%) A4C 44.2 % LVEF(%) A2C 42.6 % LVEF(%) BP 43.5 % LV SV A4C 96.8 ml LV SV A2C 86.4 ml LV SV BP 91.7 ml LV CO A4C 9.4 L/min LV CO A2C 8.1 L/min LV CO BP 8.8 L/min HR A4C 97.51 BPM HR A2C 94.00 BPM LV EDV Index (BP) LV Strain Long Pk Overal Avg (s) 12.44 LV Diastology MV E Vmax 1.02 (0.4-1.3 m/s) Aortic Valve AoV Vmax 1.79 m/s LVOT Vmax 1.32 m/s AoV Peak Grad 12.8 mmHg LVOT Peak Grad 6.9 mmHg AoV Area (Vmax) 2.59 cm2 LVOT VTI 0.215 m AoV VTI 0.331 m LVOT Mean Grad 4.2 mmHg AoV Mean Luan. 1.28 m/s LVOT SV 76.06 mL AoV Mean Grad 7.5 mmHg LVOT Diam s 2.10 cm AoV Area (VTI) 2.30 cm2 AV Regurg Peak Gr. 12.83 mmHg Velocity Ratio 0.74 Mitral Valve MV Vmax TIPS 1.12 m/s MV Mean Grad 1.8 (<2mmHg) MV Area PHT 7.43 cm2 MV VTI 0.227 m Tricuspid Valve TV S' 0.12 m/s
[2024-10-09 12:57] LABS: Vancomycin, Random 11.8 ug/mL
--- NOTE | 2024-10-09 14:04 | W.PM.DS.N ---
Date of service: 10/09/24 Time of Service: 14:04 DS: Diagnosis Discharge Diagnosis (1) Severe sepsis: Status: Acute (2) Acute deep vein thrombosis (DVT) of right upper extremity: Status: Acute (3) Malignant melanoma: Status: Acute (4) Lung nodule: Status: Acute (5) Cancer related pain: Status: Acute (6) Immunotherapy: (7) Elevated lactic acid level: Status: Acute Discharge Plan Disposition Patient Disposition: Home Condition: Improving Discharge Details Reason For Visit: DVT Admit Date/Time: 10/08/24 13:03 Admit Provider: Alberto Malone Attending Provider: Alberto Malone Primary Care Provider: Unknown,Unknown Hospital Course Hospital Course: This is a 69 years old male patient with a past medical history of melanoma stage IIIb with ongoing immunotherapy at [facility] [place] who presented to the ED for acute right arm pain not resolved on his home dose opioids. Workup in the ED was positive for lactic acid at 2.2 without leukocytosis, neutropenia or fever. Imaging was positive for findings of right upper arm median cubital thrombosis extending into the cephalic vein without findings of PE. Ongoing solid mass seen to the right axilla again.Heparin drip started in the ED. The patient was admitted to the medical surgical floor by the hospitalist service for right upper extremity thrombophlebitis, elevated lactic acid in the setting of known metastatic disease without neutropenia nor fever for ongoing treatment initiated in the ED with vancomycin, zosyn and IVF. Echocardiogram completed on 10/09/24: Conclusion Technically difficult study. Normal left ventricular wall thickness and chamber size. Ejection fraction is 45%. Septal motion is consistent with a conduction delay. There is otherwise global mild hypokinesis Right ventricle is not well-visualized but appears grossly normal in size Both atria are normal in size No hemodynamically significant valvular disease is identified Blood cultures were negative at 24 hours. Patient educated in taking his home pain medicine as ordered- he can take morphine every 4 hours as needed for pain in addition to his long acting scheduled pain medicine. Pain was controlled in the inpatient setting with a lesser MME/day. Please follow-up with palliative care provider if escalation in pain meds needed.The patient will need to follow-up with his PCP within7 days of discharge. Recommendation for outpatient follow-up: BMP , magnesium On Eliquis for DVT Hypercoagulopathy work-up Discussed with Dr. Malone Recommendations for Follow Up Recommended tests to be ordered by follow up provider: BMP , magnesium Home Meds and New Rx's Prescriptions: New Eliquis 5 mg Tablet 10 mg PO BID Qty: 90 0RF Rx Instructions: Take Eliquis 10 mg orally twice a day until 10/14- Then on 10/15 start taking Eliquis 5 mg orally twice a day - follow-up with PCP for refill for 3 month- treatment of DVT Continued polyethylene glycol 3350 [Miralax] 17 gram/dose powder 4 g PO DAILY Qty: 119 0RF gabapentin [Neurontin] 300 mg capsule 600 mg PO TID Qty: 180 3RF oxycodone 15 mg tablet,oral only,ext.rel.12 hr 30 mg PO BID MDD 4 tabs Qty: 60 0RF morphine 30 mg tablet 30 mg PO Q4H PRN MDD 6 tabs PRN (Reason: pain) Qty: 120 0RF Discharge Instructions Referrals: Unknown,Unknown [Primary Care Provider, Unknown] Referral Note: Follow-up within 7 days of discharge Activity:: Activity as Tolerated Equipment/Supplies:: No Equipment Needed Diet:: as per POLICY OFFICER Discharge Orders Discharge Orders: Discharge Order (Routine); Ordered 10/09/24 Ordered By: Jolene Ballard DS: Summary Time Spent with Patient providing and/or coordinating discharge services: Greater than 30 minutes Status at Discharge Functional status at discharge: independent ambulation Overall status at discharge: patient is progressing back to baseline Mental Status: mental status grossly normal Speech and Movement: speech and movement normal Mood: congruent mood Affect: normal affect Exam Narrative Exam Narrative: No acute distress A&O x 3, no acute focal neurological deficit ongoing right upper extremity weakness, clear lungs, S1-S2 no murmur positive pulses to all 4 extremities abdomen is nondistended soft non-tender bowel sounds are present, chronic bilateral lower extremity swelling left more than right Psych Mental Status: mental status grossly normal Speech and Movement: speech and movement normal Mood: congruent mood Affect: normal affect DS: Data Vitals/I&O Vitals and I&O: Vital Signs Temperature 36.2 C L 10/09/24 11:45 Temperature Source Skin 10/09/24 11:45 Pulse 102 H 10/09/24 11:45 Pulse 104 H 10/08/24 13:31 Respiratory Rate 17 10/09/24 11:45 Respiratory Effort Normal 10/08/24 16:18 Respiratory Depth Normal 10/08/24 16:18 Respiratory Pattern Normal 10/08/24 16:18 Blood Pressure 126/69 10/09/24 11:45 Blood Pressure Mean 88 10/09/24 11:45 Blood Pressure Position Sitting 10/08/24 09:53 Pulse Oximetry 95 10/09/24 11:45 Oxygen Delivery Method Room Air 10/09/24 11:45 Oxygen Flow Rate 0 10/09/24 11:45 Pain Level 5 10/09/24 11:58 Comment Pt stated that he was in pain, stated that his arm and shoulder hurts. 10/09/24 03:24 Intake & Output 10/08/24 10/09/24 10/09/24 23:59 11:59 23:59 Intake Total 132.333 / 044.918 5617 / 1380 Output Total 600 / 600 950 / 950 Balance -467.667 / -467.667 430 / 430 Intake: IV 132.333 / 402.777 9625 / 1380 Output: Urine 600 / 600 950 / 950 Other: Urine Color Pale Yellow Yellow Urine Appearance Clear Clear Urine Odor None Normal Comment pT stated that he voided. Stool Size Small Moderate Stool Characteristics Soft Soft Brown Liquid Brown Data Completed and Pending Labs on day of discharge: Labs from last 24 hours 10/09/24 10/08/24 10/08/24 05:40 19:10 09:40 WBC 9.30 RBC 3.74 L Hgb 10.2 L Hct 31.3 L MCV 84 MCH 27.3 MCHC 32.6 RDW 13.2 Plt Count 320 MPV 8.8 Immature Gran % 0.4 Neutrophils % 80.7 Lymphocytes % 11.4 Monocytes % 5.4 Eosinophils % 1.8 Basophils % 0.3 Nucleated RBC % 0.0 Absolute Neutrophils 7.50 H Absolute Lymphocytes 1.06 L Absolute Monocytes 0.50 Absolute Eosinophils 0.17 Absolute Basophils 0.03 APTT 29.6 46.2 H VBG Lactate 0.8 Sodium 139 138 Potassium 2.9 L* 3.6 Chloride 103 99 Carbon Dioxide 28.7 27.5 Anion Gap 7.3 11.5 H BUN 12 15 Creatinine 0.7 0.8 Est GFR (CKD-EPI 2020) 100.37 96.40 Glucose 102 110 H Calcium 8.1 L 9.2 Magnesium 1.7 L 1.8 Total Bilirubin 0.5 AST 19 ALT 15 L Alkaline Phosphatase 109 Lactate Dehydrogenase 248 H Troponin I 10 Total Protein 7.4 Albumin 1.9 L Lipase 17 Random Vancomycin 11.8 Preliminary micro results at discharge 10/08/24 10:25 Blood Blood Culture - Preliminary NO GROWTH 24 HOURS 10/08/24 09:40 Blood Blood Culture - Preliminary NO GROWTH 24 HOURS PFSH All Active Problems (Updated 10/08/24 @ 19:18 by Jolene Ballard APRN) Severe sepsis (Acute) Sepsis (Acute) Elevated lactic acid level (Acute) Acute deep vein thrombosis (DVT) of right upper extremity (Acute) Lung nodule (Acute) Malignant melanoma (Acute) Cancer related pain (Acute) Medical History (Updated 10/08/24 @ 19:18 by Jolene Ballard APRN) Immunotherapy Social History Smoking/Tobacco Use Status: Never Smoking risk assessment performed?: Yes Alcohol Intake: never Substance use type: does not use Housing: house Do you feel safe at home: Yes Do you feel safe in your relationship?: Yes Time Spent with Patient Time Spent with Patient: 70-84 minutes4 Time was spent: preparing to see the patient(eg.review tests), obtaining and/or reviewing separately otained hiistory, ordering medications,tests, procedures, referring, communicating with other health medical care administrator, indepentently interpreting results, counseling the patient and care coordination
[2024-10-09] MEDS: Gabapentin 300 MG CAP 600 MG PO (15:59)
[2024-10-09] MEDS: Magnesium Oxide 400 MG TAB 800 MG PO (15:59)
[2024-10-09] MEDS: Lactated Ringers 250 ML 100 ML IV (16:01)
--- NOTE | 2024-10-09 18:08 | PDOC.CMDIS ---
Date of service: 10/09/24 Time of Service: 18:08 LACE Index Scoring Tool Questions: Length of Stay (in days): 1 Was the patient admitted via the E.D.?: Yes Comorbidities: Metastatic Solid Tumor E.D. Visits: 2 Answers: Total Score: 11 Risk of Readmission: High Risk Care Management Discharge Plan Reason for Hospitalization: DVT Discharge Plan: Ernst will be discharged home with no new services. He will follow up with his community providers and plan of care and will transport with his . Patient/Family Education Needs: Review of discharge instructions, limitations, follow up plan and discuss Ask Me Three.
[2024-10-11 19:33] LABS: B. miyamotoi PCR Negative (Negative); Babesia divergens/MO-1 Negative (Negative); Ehrlichia muris eauclairensis Negative (Negative)
== END 2024-10-09 16:03 | disposition home or self-care (01) | DRG 872 ==
LOC: ER 09:29 → MS 16:03
PROVIDERS: Student in an Organized Health Care Education/Training Program; Admitting Provider Family Medicine; Emergency Provider Emergency Medicine; Responsible Provider Nurse Practitioner Acute Care; Visit Provider Family Medicine
DX: A41.9 Sepsis, unspecified organism (principal); I82.621 Acute embolism and thrombosis of deep veins of right upper extremity; E87.20 Acidosis, unspecified; C79.9 Secondary malignant neoplasm of unspecified site; R65.20 Severe sepsis without septic shock; C43.9 Malignant melanoma of skin, unspecified; R91.1 Solitary pulmonary nodule; G89.3 Neoplasm related pain (acute) (chronic); R79.1 Abnormal coagulation profile; Z79.891 Long term (current) use of opiate analgesic; Z79.899 Other long term (current) drug therapy; R60.0 Localized edema; Z79.01 Long term (current) use of anticoagulants
CPT/HCPCS: 00123; 36415; 71275; 80048; 80053; 82805; 83690; 86850; 86900; 86901; 87040; 87637; 87798; 93005; 93308; 96365; 96366; 96367; 96375; 96376; 99285; 80202; 81003; 83605; 83615; 83735; 84484; 85025; 85730; 86618; 93010; 93306; 93971; 99223; 99239; J1171; J1644; J2543; J3373; J3480